=== PATIENT | male | born 1955 | race Caucasian/White ===

== ENCOUNTER 2020-05-28 06:42 | Outpatient (CLI) | payer MEDICARE ==
[2020-05-28 22:56] LABS: SARS-CoV-2 MS2 Positive; SARS-CoV-2 N Gene Negative; SARS-CoV-2 S Gene Negative; SARS-CoV-2 by NAA Not Detected (NotDetected); SARS-CoV-2 orf1ab Negative
== END 2020-05-28 06:43 | disposition home or self-care (01) ==
LOC: LABBT 06:42
PROVIDERS: ATTEND Internal Medicine Gastroenterology
DX: Z12.11 Encounter for screening for malignant neoplasm of colon (principal)
CPT/HCPCS: 87635; U0003

== ENCOUNTER 2020-06-02 08:10 | Day surgery (SDC) | payer MEDICARE, OTHER ==
[2020-06-01 09:41] VITALS: BMI 56.9
[2020-06-02] MEDS ORDERED: PROPOFOL 200 MG/20 ML VIAL ONE (08:58)
--- NOTE | 2020-06-02 11:19 | OP ---
DATE OF PROCEDURE: 06/02/2020 PROCEDURES PERFORMED: Colonoscopy with snare polypectomy. PREMEDICATION: Given by Anesthesiology Department. PREPROCEDURE DIAGNOSIS: Colon screening, average risk. POSTPROCEDURE DIAGNOSES: 1. Ascending colon polyps x2. 2. Rectal polyp x1. 3. Otherwise, normal colon exam. DESCRIPTION OF PROCEDURE: Written consents were obtained prior to procedure. After adequate sedation, the forward-viewing endoscope was advanced to the cecum. The quality of the bowel prep was good. The ileocecal valve and appendiceal orifice were visualized, appeared normal. In the mid ascending colon, a 4 mm sessile polyp was noted and was removed with cold snare and retrieved. In the proximal ascending colon, a 5 mm sessile polyp was noted and was removed with a cold snare and retrieved. The transverse colon, splenic flexure, descending colon, and sigmoid colon appeared normal. In the upper rectal vault, a 5 mm semi-flat polyp was noted and was removed with cold snare and retrieved. Retroflexion was normal. The patient tolerated the procedure well. ASSESSMENT: 1. Three colon polyps, 2 ascending and 1 rectal, removed. 2. Otherwise, normal colon exam. RECOMMENDATION: Await biopsy results. Job ID: [id number]
== END 2020-06-02 11:20 | disposition home or self-care (01) ==
LOC: SDC 08:10
PROVIDERS: ATTEND Internal Medicine Gastroenterology
PROC: 0DBK8ZZ Excision of Ascending Colon, Via Natural or Artificial Opening Endoscopic (ICD-10-PCS; principal; 2020-06-02)
PROC: 0DBP8ZZ Excision of Rectum, Via Natural or Artificial Opening Endoscopic (ICD-10-PCS; 2020-06-02)
DX: Z12.11 Encounter for screening for malignant neoplasm of colon (principal); D12.2 Benign neoplasm of ascending colon; K62.1 Rectal polyp; I10 Essential (primary) hypertension; Z79.899 Other long term (current) drug therapy; Z91.013 Allergy to seafood
CPT/HCPCS: 88305; J2704